=== PATIENT | male | born 1965 | race Caucasian/White ===

== ENCOUNTER 2020-09-26 08:35 | Day surgery (SDC) | payer OTHER, SELFPAY ==
[2020-09-20 10:12] VITALS: BMI 38.0
--- NOTE | 2020-09-25 10:23 | P.CONAN_ITS ---
Documented by User: Luz Gerard 09/25/20 10:24 HPI - Anesthesia Eval Consult details Narrative: 55yo M for Colonoscopy [facility] Past Medical History Medical History Depression Elevated cholesterol PTSD (post-traumatic stress disorder) TIA (transient ischemic attack) Surgical History Surgical History H/O colonoscopy Hx of cholecystectomy Social History Social History Smoking Status: Former smoker Years Smoked: 39 Smoking Quit Date: 2016 Use of substances other than those prescribed or required for medical reasons: No Advance Directives Information Provided: No Meds Allergies Allergy/AdvReac Type Severity Reaction Status Date / Time avocado [AVOCADO] Allergy Intermediate RASH/SWELLI Verified 09/20/20 10:18 NG eggplant [EGGPLANT] Allergy Intermediate RASH/SWELLI Verified 09/20/20 10:18 NG latex [LATEX] Allergy Intermediate RASH/SWELLI Verified 09/20/20 10:18 NG Sulfa (Sulfonamide Allergy Intermediate Rash Verified 09/26/20 08:55 Antibiotics) Penicillins [PENICILLINS] Allergy Unknown UNKNOWN-CHILDHOOD Verified 09/20/20 10:18 REACTION Home Medications Medication Instructions Recorded Confirmed Type sertraline 100 mg PO DAILY 09/26/20 09/26/20 History Exam Exam Date and Time: September 25, 2020 1023 Height,Weight and Vital Signs: Height 5 ft 10 in Weight 120.202 kg Assessment and Plan Assessment Anesthesia Assessment: Chart Reviewed Documented by User: Dipika Gore 09/26/20 10:08 [facility] Past Medical History Medical History Depression Elevated cholesterol PTSD (post-traumatic stress disorder) TIA (transient ischemic attack) Surgical History Surgical History H/O colonoscopy Hx of cholecystectomy Social History Social History Smoking Status: Former smoker Years Smoked: 39 Smoking Quit Date: 2016 Use of substances other than those prescribed or required for medical reasons: No Advance Directives Information Provided: No Meds Allergies Allergy/AdvReac Type Severity Reaction Status Date / Time avocado [AVOCADO] Allergy Intermediate RASH/SWELLI Verified 09/20/20 10:18 NG eggplant [EGGPLANT] Allergy Intermediate RASH/SWELLI Verified 09/20/20 10:18 NG latex [LATEX] Allergy Intermediate RASH/SWELLI Verified 09/20/20 10:18 NG Sulfa (Sulfonamide Allergy Intermediate Rash Verified 09/26/20 08:55 Antibiotics) Penicillins [PENICILLINS] Allergy Unknown UNKNOWN-CHILDHOOD Verified 09/20/20 10:18 REACTION Home Medications Medication Instructions Recorded Confirmed Type sertraline 100 mg PO DAILY 09/26/20 09/26/20 History Exam Airway Mallampati Class: I TM Dist: >3cm Neck ROM: Full Loose/Missing/Broken Teeth: No Heart: RRR Lungs: CTA Assessment and Plan Assessment Anesthesia Assessment: Anesthesia Plan Discussed and Chart Reviewed Final Anesthetic Review NPO: Yes ASA Class: II Final Preanesthetic Review: Meds/Allgs Chart Reviewed and Consent Obtained/Reviewed Patient Risk: Low Procedure Risk: Low Anesthetic Plan Anesthetic Plan: MAC: Disposition: Standard PACU
[2020-09-26 09:04] VITALS: BP 121/70; PULSE 71; RESP 16; TEMP 36.8; O2SAT 95
--- NOTE | 2020-09-26 09:13 | MHC.SHP ---
Pre-Procedural Eval Section B Chief Complaint: SCREENING Details of Present Illness: screening Relevant Family History (Specify if Yes): No Relevant Social History: Tobacco Use Present Medications: see Short Stay Collaborative assessment Medical History: No relevant PMH History of Previous Operations: No relevant previous surgery Allergies: Allergies Allergy/AdvReac Type Severity Reaction Status Date / Time avocado [AVOCADO] Allergy Intermediate RASH/SWELLI Verified 09/20/20 10:18 NG eggplant [EGGPLANT] Allergy Intermediate RASH/SWELLI Verified 09/20/20 10:18 NG latex [LATEX] Allergy Intermediate RASH/SWELLI Verified 09/20/20 10:18 NG Sulfa (Sulfonamide Allergy Intermediate Rash Verified 09/26/20 08:55 Antibiotics) Penicillins [PENICILLINS] Allergy Unknown UNKNOWN-CHILDHOOD Verified 09/20/20 10:18 REACTION Review of Systems Sugical H&P ROS: Negative: Constitution, Cardiovascular, Respiratory, Neurological, Psychiatric, Hem-Onc, Allergic/Immunologic, Gastrointestinal, Genitourinary, Musculoskeletal, Integumentary, Endocrine and Eyes/Ears/Nose/Throat Exam Surgical H&P Exam: Normal: HEENT, Normal: Heart, Normal: Lungs, Normal: Extremities, Normal: Abdomen, Normal: Skin and Normal: Neurological Plan Diagnosis/Plan: Unchanged Patient has been examined and remains a candidate for the planned procedure
[2020-09-26] MEDS: Lactated Ringers 1,000 ML 100 ML IVCONT (09:17)
[2020-09-26 10:30] VITALS: BP 114/58; PULSE 58; RESP 16; TEMP 37.3; O2SAT 97
--- NOTE | 2020-09-26 10:32 | PM.OP ---
Brief Operative Note Date of procedure: 09/26/20 Pre-op diagnosis: screening Post-op diagnosis: same (colon polyps) Procedure: colonosocpy Surgeon: Anjum Rivera Anesthesia: MAC Estimated blood loss (mL): 5 Pathology: other (polyps cecum, 80 cm, rectum) Condition: stable Disposition: PACU
[2020-09-26 10:45] VITALS: BP 116/74; PULSE 116; RESP 59; TEMP 37.3; O2SAT 95
--- NOTE | 2020-09-26 10:58 | OP_ITS ---
SURGEON: Anjum Rivera MD INDICATIONS: Colon cancer screening and prior history of adenomatous colon polyps. PREOPERATIVE DIAGNOSIS: POSTOPERATIVE DIAGNOSIS: PROCEDURE PERFORMED: Colonoscopy to the terminal ileum with biopsy. ESTIMATED BLOOD LOSS: COMPLICATIONS: ANESTHESIA: ASSISTANTS: SPECIMENS: MEDICATIONS: Monitored anesthesia care. DESCRIPTION OF PROCEDURE: History and physical performed. The risks and benefits of the procedure were explained to the patient. Informed consent was obtained. The patient was placed in the left lateral decubitus position. A digital rectal exam was performed and was found to be normal. The Olympus pediatric video colonoscope was introduced into the rectum and advanced to the cecum without difficulty. The cecum was identified by transillumination, palpation, and identification of ileocecal valve. Examination was performed. The scope was removed. He tolerated the procedure well and was taken to recovery in stable condition. FINDINGS: The terminal ileum was normal. Visualized colonic mucosa was normal. The quality of the prep was good. Three polyps were identified. All measured less than 5 mm and were removed with biopsy forceps. These were located in the cecum at 80 cm and in the rectum. No other polyps were identified. There was mild diverticulosis involving the sigmoid. Retroflexed examination showed small internal hemorrhoids. IMPRESSION: Colon polyps. RECOMMENDATION: Follow up the biopsy results. Repeat colonoscopy in 3 to 5 years pending results. MD ROMEO Velazquez/MARVA / [id number]
--- NOTE | 2020-09-26 11:15 | HO.POSTANES ---
Post Anesthesia Evaluation Post Anesthesia Evaluation Vital Signs: Vital Signs Temp Pulse Resp BP Pulse Ox 09/26/20 10:45 99.1 F 116 H 59 H 116/74 95 09/26/20 10:30 99.1 F 58 16 114/58 L 97 09/26/20 09:04 98.3 F 71 16 121/70 95 Anesthesia: Monitored Mental Status: Awake Pain Control: Satisfactory Nausea/Vomiting: None Hydration: Adequate Anesthesia-Related Issues: No Anes. Related Issues
== END 2020-09-26 11:26 | disposition home or self-care (01) ==
PROVIDERS: PCP Internal Medicine; Visit Provider Internal Medicine Gastroenterology
PROC: 0DJD8ZZ Inspection of Lower Intestinal Tract, Via Natural or Artificial Opening Endoscopic (ICD-10-PCS; CPT 45378; principal; 2020-09-26 09:50)
DX: Z12.11 Encounter for screening for malignant neoplasm of colon (principal); Z86.010 Personal history of colon polyps; D12.0 Benign neoplasm of cecum; K63.5 Polyp of colon; K62.1 Rectal polyp; K57.30 Diverticulosis of large intestine without perforation or abscess without bleeding; K64.8 Other hemorrhoids; Z90.49 Acquired absence of other specified parts of digestive tract; E78.00 Pure hypercholesterolemia, unspecified; F43.10 Post-traumatic stress disorder, unspecified; F32.9 Major depressive disorder, single episode, unspecified; Z86.73 Personal history of transient ischemic attack (TIA), and cerebral infarction without residual deficits; Z79.899 Other long term (current) drug therapy; Z87.891 Personal history of nicotine dependence; Z88.8 Allergy status to other drugs, medicaments and biological substances; Z91.040 Latex allergy status; Z88.2 Allergy status to sulfonamides
CPT/HCPCS: 45380; 88305

== ENCOUNTER 2021-03-08 06:04 | Outpatient (REF) | payer BC, SELFPAY ==
[2021-03-08 11:10] LABS: Urine Cytology See Pathology rpt
[2021-03-08 11:17] LABS: MANUAL DIFF FLAG NO
[2021-03-08 11:33] LABS: Glucose Urine UA NEG (NEG); Leukocyte Esterase Urine NEG (NEG); Nitrite Urine NEG (NEG); Specific Gravity - Urine >= 1.030 (1.005-1.025); Urine Blood NEG (NEG); Urine Ketones NEG (NEG); Urine Protein NEG (NEG-TRACE)
[2021-03-08 11:37] LABS: Basophils Absolute Auto 0.1 X10*3/uL (0.0-0.2); Basophils Percent Auto 1.4 % (0-2); Eosinophils Absolute Auto 0.5 X10*3/uL (0.0-0.4); Hematocrit 49.6 % (42-52); Hemoglobin 16.5 g/dl (14.0-18.0); Imm Gran Abs Auto 0.05 X10*3/uL (0.00-0.03); Imm Gran Pct Auto 0.6 % (0.0-0.4); Lymphocytes Absolute Auto 2.4 X10*3/uL (1.2-4.9); Lymphocytes Percent Auto 27.9 % (20-40); Mean Corpuscular HGB Conc 33.3 g/dl (31.0-36.0); Mean Corpuscular Hemoglobin 29.5 pg (27.0-33.0); Mean Corpuscular Volume 88.6 fL (80-98); Mean Platelet Volume 8.9 fL (9.4-12.4); Monocytes Absolute Auto 0.8 X10*3/uL (0.1-1.2); Monocytes Percent Auto 8.7 % (2-11); Neutrophils Absolute Auto 4.8 X10*3/uL (2.0-8.3); Neutrophils Percent Auto 55.4 % (45-73); Platelet Count 278 X10*3/uL (160-400); Red Cell Distribution Width 13.3 % (11.0-16.0); White Blood Count 8.6 X10*3/uL (4.8-10.8)
[2021-03-08 11:38] LABS: Appearance Urine CLEAR; Color Urine YELLOW
[2021-03-08 11:53] LABS: Alanine Aminotransferase 22 U/L (0-40); Albumin Level 4.2 g/dL (3.5-5.0); Alkaline Phosphatase 60 U/L (39-117); Anion Gap 15 (12-20); Aspartate Amino Transferase 19 U/L (5-37); Bilirubin Total 0.5 mg/dL (0.0-1.0); Blood Urea Nitrogen 12 mg/dL (9-16); Calcium 8.8 mg/dL (8.4-10.2); Carbon Dioxide 23 mmol/L (22-29); Chloride 104 mmol/L (96-108); Cholesterol 233 mg/dL; Estimated Glomerular Filt Rate > 60; Glucose Fasting 93 mg/dL (60-99); HDL Cholesterol 36 mg/dL; LDL Cholesterol Calculated 169 mg/dl; Potassium 4.4 mmol/L (3.3-5.1); Sodium 138 mmol/L (135-145); Triglycerides 144 mg/dL
[2021-03-08 12:15] LABS: Vitamin D 25-OH Total 9.3 ng/mL (>30)
[2021-03-08 13:09] LABS: Estimated Average Glucose 120 mg/dL; Hemoglobin A1c % 5.8 %
== END 2021-03-08 06:05 | disposition home or self-care (01) ==
LOC: HO.HMGCLDS 06:04
PROVIDERS: PCP Internal Medicine; Visit Provider Internal Medicine
DX: Z00.00 Encounter for general adult medical examination without abnormal findings (principal); E78.00 Pure hypercholesterolemia, unspecified; R31.21 Asymptomatic microscopic hematuria; E55.9 Vitamin D deficiency, unspecified; E66.01 Morbid (severe) obesity due to excess calories; Z68.41 Body mass index [BMI] 40.0-44.9, adult; N40.0 Benign prostatic hyperplasia without lower urinary tract symptoms
CPT/HCPCS: 36415; 80053; 80061; 81003; 82306; 83036; 84443; 85025; 88112